=== PATIENT | male | born 1960 | race Caucasian/White ===

== ENCOUNTER → 2016-12-18 | Outpatient (CLI) | payer BC ==
--- NOTE | 2016-12-18 09:58 | DIAGNOSTIC IMAGING REPORT ---
CHEST 2 VIEWS ROUTINE [id number] STUDY: 09/11/2014 FINDINGS: The cardiac and mediastinal contours are normal. There is no evidence of focal pulmonary consolidation. There is no evidence of failure. No pleural effusions are visualized.[ Small midlung zone nodular opacities remain similar to the prior study, and are felt to represent nipple shadows. IMPRESSION: No active disease in the chest. Electronically signed by: Adrian Malin M.D. 12/18/2016 9:57 AM Dictated Date/Time: 12/18/2016 9:56 AM
[2016-12-18 14:39] LABS: URINE APPEARANCE CLOUDY (CLEAR); URINE BILIRUBIN NEG (NEG); URINE COLOR YELLOW; URINE EPITHELIAL CELL AUTO 0-5 /lpf (0-5); URINE NITRITE NEG (NEG); URINE SPECIFIC GRAVITY 1.019 (1.000-1.030); UROBILINOGEN NEG (NEG)
[2016-12-18 14:40] LABS: MANUAL MICROSCOPIC REQUIRED? NO; REVIEW REQ? NO
== END | disposition home or self-care (01) ==
LOC: C.RADBC 09:29
PROVIDERS: ATTEND Internal Medicine
DX: Z00.00 Encounter for general adult medical examination without abnormal findings (principal)

== ENCOUNTER 2020-12-23 13:42 | Inpatient (IN) ==
[2020-12-23] MEDS ORDERED: ASPIRIN CHEW 324 MG PO STA (15:22)
[2020-12-23 15:31] LABS: Basophils # (auto) 0.01 K/uL (0-0.2); Basophils % (auto) 0.3 %; Eosinophils # (auto) 0.16 K/uL (0-0.5); Hematocrit (blood only) 42.9 % (42-52); Immature Granulocytes # (auto) 0.01 K/uL (0.00-0.02); Immature Granulocytes % (auto) 0.3 %; Lymphocytes # (auto) 0.98 K/uL (1.2-3.4); Lymphocytes % (auto) 24.7 %; Mean Corpuscular Hemoglobin 29.2 pg (25-34); Mean Corpuscular Volume 83.5 fL (80-100); Mean Platelet Volume 9.3 fL (7.4-10.4); Monocytes # (auto) 0.39 K/uL (0.11-0.59); Monocytes % (auto) 9.8 %; Neutrophils # (auto) 2.42 K/uL (1.4-6.5); Neutrophils % (auto) 60.9 %; Platelet Count 201 K/uL (130-400); RDW Coefficient of Variation 12.8 % (11.5-14.5); RDW Standard Deviation 38.7 fL (36.4-46.3); Red Blood Count 5.14 M/uL (4.7-6.1); White Blood Count 3.97 K/uL (4.8-10.8)
[2020-12-23 15:39] LABS: Albumin Level 3.5 gm/dl (3.4-5.0); BUN Creatinine Ratio 13.1 (10-20); Calcium 9.1 mg/dl (8.5-10.1); Creatinine Clr Calc Pharmacy 73.4 ml/min; Est GFR (Non-African American) 75.1 ml/min; Potassium 3.8 mmol/L (3.5-5.1)
[2020-12-23 15:43] LABS: Partial Thromboplastin Time 25.9 Seconds (21.0-31.0); Prothrombin Time 10.5 Seconds (9.0-12.0)
[2020-12-23 16:02] LABS: Albumin Globulin Ratio 1.1 (0.9-2); Bilirubin,Total 0.6 mg/dl (0.2-1); Globulin 3.2 gm/dl (2.5-4.0); Total Protein 6.7 gm/dl (6.4-8.2); Troponin I 0.968 ng/ml (0-0.045)
--- NOTE | 2020-12-23 16:04 | XRay Report ---
SINGLE VIEW CHEST CLINICAL HISTORY: Atypical chest pain. FINDINGS: An AP, portable, upright chest radiograph is compared to study dated 12/18/2016. The heart i s enlarged noting atherosclerotic calcification of the thoracic aorta. The pulmonary vasculature is n oncongested. There is mild bibasilar atelectasis. The lungs and pleural spaces are otherwise clear. N o pneumothorax is seen. The bony thorax is grossly intact. IMPRESSION: Cardiomegaly with no acute cardiopulmonary abnormality. ACT 112: Negative or not required by law. Electronically signed by: Ralph Mendoza M.D. 12/23/2020 4:03 PM
--- NOTE | 2020-12-23 16:29 | Emergency Department Note ---
Impression & Plan NSTEMI (non-ST elevated myocardial infarction), HTN (hypertension), HLD (hyperlipidemia) ED Provider Note NAME: CELESTINO HICKS AGE: 60 SEX: M ARRIVES VIA: Walk-In INFORMANT: Patient, ED PROVIDER(S): Tomas Fuentes MD CHIEF COMPLAINT: Exertional chest pain. PLAN: Disposition Admit: MEDICAL DECISION MAKING: The patient is a pleasant 60-year-old gentleman with a past medical history of hypertension, hyperlipidemia as well as a family history of heart disease who presents emergency department with worsening substernal chest pain associated with exertion in the setting of having consistent exertional chest pain over the past month. The patient reports that he had pain actually began last night when he was trying to go to sleep and woke him from sleep but he reports taking Tums as well as Excedrin and felt some relief but then the pain returned eventually went away where he could sleep but was somewhat present in the morning. He reports he was playing pickleball today which required exertion and the pain instantly would be provoked and then would resolve upon rest. He went to urgent care and was referred to emergency department. On arrival the patient reports minimal presence of the pain. Otherwise he denies any shortness of breath, nausea/vomiting, lightheadedness or radiation associate with the pain. Prior today he denies any recent fevers, chills, cough or congestion. He denies any known COVID-19 exposures. He reports he did receive his second COVID-19 immunization in September. On arrival the patient is in no acute distress, afebrile stable vital signs.. He appears clinically dry. His abdomen is benign. Exam is otherwise unremarkable. EKG demonstrates nonspecific T wave abnormality but no overt ST elevation or depression. Chest x-ray negative for acute cardiopulmonary process. WBC 3.9, nonspecific. H/H and platelets within normal limits. Chemistry without metabolic acidosis. Electrolytes and LFTs are unremarkable. Troponin 0.96 which in the setting of the patient's exertional chest pain c/w NSTEMI. The patient is agreeable for admission. He was given aspirin in the emergency department and denies any significant pain at this time. He reports complete resolution of sensation in chest after nitroglycerin x 1. Resident, Dr. Mccracken, discussed case with Dr. Ashraf, [facility] hospitalist, who will evaluate the patient for admission. Lovenox initiated for NSTEMI. I also reviewed case with Dr. Choi, cardiology on-call, who agrees with plan, management of pain, and close monitoring for recurrence of symptoms/need for emergent intervention. This patient was managed with the assistance of resident, Dr. Mccracken. I discussed the case with the resident, examined the patient, and confirm the findings and plan as documented in this note. Triage Nursing notes reviewed and agree them. Prior medical records reviewed Vital Signs: reviewed and remarkable for no significant abnormalities Differential diagnosis: Cardiac ischemia, aortic dissection, pulmonary embolism, pneumothorax, pneumonia, pericarditis, myocarditis, esophageal rupture, GERD, cholecystitis, pancreatitis, musculoskeletal, as well as other pathologies. ER treatment provided: With basketball when he was playing Diagnostics interpreted by me: ECG: Sinus bradycardia, 52 bpm, no ectopy, TWA, no overt ST elevation or depression. Cardiac Monitoring: An order for continuous cardiac monitoring was placed and demonstrated sinus bradycardia, 52 bpm, no ectopy. Laboratory studies: See below Imaging studies: See below Consultation(s): Dr. Ashraf, [facility] hospitalist, who will evaluate the patient for admission. Dr. Choi, [place] cardiology on-call. HPI: The patient is a pleasant 60-year-old gentleman with a past medical history of hypertension, hyperlipidemia as well as a family history of heart disease who presents emergency department with worsening substernal chest pain associated with exertion in the setting of having consistent exertional chest pain over the past month. The patient reports that he had pain actually began last night when he was trying to go to sleep and woke him from sleep but he reports taking Tums as well as Excedrin and felt some relief but then the pain returned eventually went away where he could sleep but was somewhat present in the morning. He reports he was playing pickleball today which required exertion and the pain instantly would be provoked and then would resolve upon rest. He went to urgent care and was referred to emergency department. On arrival the patient reports minimal presence of the pain. Otherwise he denies any shortness of breath, nausea/vomiting, lightheadedness or radiation associate with the pain. Prior today he denies any recent fevers, chills, cough or congestion. He denies any known COVID-19 exposures. He reports he did receive his second COVID-19 immunization in September. ROS: See above HPI for pertinent positives & negatives. A total of 10 systems re viewed and were otherwise negative. PAST MEDICAL HISTORY:See Below PAST SURGICAL HISTORY:See Below FAMILY HISTORY:See Below SOCIAL HISTORY:See Below HOME MEDICATIONS:See Below ALLERGIES:See Below VITALS:See Below PHYSICAL EXAMINATION: GENERAL: Awake, alert, uncomfortable-appearing, in no distress HENT: Normocephalic, atraumatic. Oropharynx with dry mucous membranes and otherwise unremarkable. EYES: Normal conjunctiva. Sclera non-icteric. NECK: Supple. No nuchal rigidity. FROM. No JVD. RESPIRATORY: Clear to auscultation. CARDIAC: Regular rate, normal rhythm. Extremities warm and well perfused. Pulses equal. ABDOMEN: Soft, non-distended. No tenderness to palpation. No rebound or guarding. No masses. RECTAL: Deferred. MUSCULOSKELETAL: Chest examination reveals no tenderness. The back is symmetrical on inspection without obvious abnormality. There is no CVA tenderness to palpation. No joint edema. LOWER EXTREMITIES: Calves are equal size bilaterally and non-tender. No edema. No discoloration. NEURO: Normal sensorium. No sensory or motor deficits noted. SKIN: No rash or jaundice noted. ED COURSE: Critical Care: I have personally spent greater than 45 minutes of critical care time in the direct management of this patient. This includes bedside care, interpretation of diagnostic studies, and testing, discussion with consultants, patient, and f amily members, and other required patient management activities. This 45 minutes is in excess of all separately billable procedures. Tomas Fuentes MD Past Med/Surg History Medical History (Updated 12/24/20 @ 00:49 by Tomas Fuentes MD) Biceps rupture, distal Dyslipidemia (high LDL; low HDL) HTN (hypertension) Metabolic syndrome Surgical History H/O lymph node excision S/P UPPP (uvulopalatopharyngoplasty) Family History Father Acute myocardial infarction Mother Breast cancer Social History Smoking Status: Never smoker Second Hand Exposure: No; Hx Alcohol Use: No Hx Substance Use: No Preferred Language: Setswana Communication Ability: Effective Visual Impairment: No Limitations Hearing Ability: Normal Lpta Required: No Beliefs That Will Affect Care: None marital status: Current Living Situation: Spouse current occupational status: retired How many Children do You have: 2 Feels Safe at Home: Yes Childhood Exposure to Second-Hand Smoke: Yes caffeine: Yes Dental Care, Regularly: Yes Physical Activity Frequency: 5-6 Times per Week Seatbelt Use: always Sunscreen Use: Yes Allergies Allergies Allergy/AdvReac Type Severity Reaction Status Date / Time codeine Allergy Unknown HAS Verified 12/23/20 16:42 RECEIVED MORPHINE ON ADMIT W/O RXN niacin Allergy Verified 12/23/20 16:42 [From Niaspan Extended-Release] Home Meds Home Medications Medication Instructions Recorded Confirmed cetirizine 10 mg tablet 10 mg PO QAM tab 02/06/19 12/23/20 lactobacillus combination no.9 4 4,000 mmu cells PO QAM 10/13/20 12/23/20 billion cell capsule (Adult 50 Plus Probiotic) omega 7-jxw-ewp-fish oil 284 2.5 g PO QAM g 10/13/20 12/23/20 mg-850 mg/2.5 gram oral emulsion packet (Coromega) vknlera-hongqoxziylxk-ehiupwqt 250 1 tab PO Q6H PRN 12/23/20 12/23/20 mg-250 mg-65 mg tablet (Excedrin Extra Strength) atorvastatin 10 mg tablet 10 mg PO QAM 12/23/20 12/23/20 olmesartan 40 1 tab PO QAM 12/23/20 12/23/20 mg-hydrochlorothiazide 12.5 mg tablet tadalafil 20 mg tablet (Cialis) 20 mg PO DIRECTED PRN 12/23/20 12/23/20 Results & Data (ED) Vital Signs Vital Signs - 24 hr 12/23/20 13:46 12/23/20 14:58 12/23/20 15:00 Temperature 36.7 C Temperature Source Temporal Artery Scan Pulse Rate 53 L 39 L 48 L Pulse Rate from SpO2 Sensor Respiratory Rate 18 11 L 19 Respiratory Effort / Characteristics Non-Labored Respiratory Depth Normal Blood Pressure 132/79 Blood Pressure Mean 96 Pulse Oximetry 97 Oxygen Delivery Method Room Air Sepsis Recent Fever Within 48 Hours No Sepsis New/Unexplained Change in Mental Status No Sepsis Action Taken by Nursing No Action Required 12/23/20 15:30 12/23/20 16:00 12/23/20 16:10 Temperature Temperature Source Pulse Rate 47 L 43 L Pulse Rate from SpO2 Sensor 47 L 43 L Respiratory Rate 17 10 L Respiratory Effort / Characteristics Respiratory Depth Blood Pressure 134/78 126/62 Blood Pressure Mean 96 83 Pulse Oximetry 96 97 99 Oxygen Delivery Method Room Air Sepsis Recent Fever Within 48 Hours Sepsis New/Unexplained Change in Mental Status Sepsis Action Taken by Nursing 12/23/20 16:11 12/23/20 16:31 12/23/20 16:58 Temperature Temperature Source Pulse Rate 48 L 42 L Pulse Rate from SpO2 Sensor 48 L Respiratory Rate 16 11 L Respiratory Effort / Characteristics Respiratory Depth Blood Pressure 133/83 121/69 Blood Pressure Mean 99 86 Pulse Oximetry 99 98 Oxygen Delivery Method Room Air Sepsis Recent Fever Within 48 Hours Sepsis New/Unexplained Change in Mental Status Sepsis Action Taken by Nursing Laboratory Data Attestation: I reviewed the patient's lab results. Result diagrams: 12/23/20 15:02 12/23/20 15:02 Lab Results 12/23/20 12/23/20 12/23/20 Range/Units 15:02 15:02 15:02 WBC 3.97 L (4.8-10.8) K/uL RBC 5.14 (4.7-6.1) M/uL Hgb 15.0 (14.0-18.0) g/dL Hct 42.9 (42-52) % MCV 83.5 (80-100) fL MCH 29.2 (25-34) pg MCHC 35.0 (32-36) g/dL RDW Std Deviation 38.7 (36.4-46.3) fL RDW Coeff of René 12.8 (11.5-14.5) % Plt Count 201 (130-400) K/uL MPV 9.3 (7.4-10.4) fL Immature Gran % (Auto) 0.3 % Neut % (Auto) 60.9 % Lymph % (Auto) 24.7 % Garrett % (Auto) 9.8 % Eos % (Auto) 4.0 % Baso % (Auto) 0.3 % Neut # (Auto) 2.42 (1.4-6.5) K/uL Lymph # (Auto) 0.98 L (1.2-3.4) K/uL Garrett # (Auto) 0.39 (0.11-0.59) K/uL Eos # (Auto) 0.16 (0-0.5) K/uL Baso # (Auto) 0.01 (0-0.2) K/uL Immature Gran # (Auto) 0.01 (0.00-0.02) K/uL PT 10.5 (9.0-12.0) Seconds INR 1.0 (0.9-1.1) APTT 25.9 (21.0-31.0) Seconds PTT Ratio 1.0 Sodium 139 (136-145) mmol/L Potassium 3.8 (3.5-5.1) mmol/L Chloride 106 (98-107) mmol/L Carbon Dioxide 30 (21-32) mmol/L Anion Gap 3.0 (3-11) BUN 14 (7-18) mg/dl Creatinine 1.07 (0.6-1.4) mg/dl Est Cr Clr Drug Dosing 73.4 ml/min Est GFR ( Amer) 87.0 ml/min Est GFR (Non-Af Amer) 75.1 ml/min BUN/Creatinine Ratio 13.1 (10-20) Glucose 111 H (70-99) mg/dl Calcium 9.1 (8.5-10.1) mg/dl Total Bilirubin 0.6 (0.2-1) mg/dl AST 36 (15-37) U/L ALT 36 (12-78) U/L Alkaline Phosphatase 76 (45-117) U/L Troponin I 0.968 H* (0-0.045) ng/ml Total Protein 6.7 (6.4-8.2) gm/dl Albumin 3.5 (3.4-5.0) gm/dl Globulin 3.2 (2.5-4.0) gm/dl Albumin/Globulin Ratio 1.1 (0.9-2) Lipase 186 (73-393) U/L COVID-19 Eval Order SARS-CoV-2 (PCR) (Negative) 12/23/20 12/23/20 Range/Units 16:30 16:30 WBC (4.8-10.8) K/uL RBC (4.7-6.1) M/uL Hgb (14.0-18.0) g/dL Hct (42-52) % MCV (80-100) fL MCH (25-34) pg MCHC (32-36) g/dL RDW Std Deviation (36.4-46.3) fL RDW Coeff of René (11.5-14.5) % Plt Count (130-400) K/uL MPV (7.4-10.4) fL Immature Gran % (Auto) % Neut % (Auto) % Lymph % (Auto) % Garrett % (Auto) % Eos % (Auto) % Baso % (Auto) % Neut # (Auto) (1.4-6.5) K/uL Lymph # (Auto) (1.2-3.4) K/uL Garrett # (Auto) (0.11-0.59) K/uL Eos # (Auto) (0-0.5) K/uL Baso # (Auto) (0-0.2) K/uL Immature Gran # (Auto) (0.00-0.02) K/uL PT (9.0-12.0) Seconds INR (0.9-1.1) APTT (21.0-31.0) Seconds PTT Ratio Sodium (136-145) mmol/L Potassium (3.5-5.1) mmol/L Chloride (98-107) mmol/L Carbon Dioxide (21-32) mmol/L Anion Gap (3-11) BUN (7-18) mg/dl Creatinine (0.6-1.4) mg/dl Est Cr Clr Drug Dosing ml/min Est GFR ( Amer) ml/min Est GFR (Non-Af Amer) ml/min BUN/Creatinine Ratio (10-20) Glucose (70-99) mg/dl Calcium (8.5-10.1) mg/dl Total Bilirubin (0.2-1) mg/dl AST (15-37) U/L ALT (12-78) U/L Alkaline Phosphatase (45-117) U/L Troponin I (0-0.045) ng/ml Total Protein (6.4-8.2) gm/dl Albumin (3.4-5.0) gm/dl Globulin (2.5-4.0) gm/dl Albumin/Globulin Ratio (0.9-2) Lipase (73-393) U/L COVID-19 Eval Order Covid19 at [facility] SARS-CoV-2 (PCR) NEGATIVE (Negative) Administered Medications Acetaminophen (Acetaminophen 325 Mg Tab) 650 mg PO Q4H PRN PRN Reason: Pain or Fever Stop: 01/22/21 20:14 Last Admin: 12/23/20 20:33 Dose: 650 mg Documented by: [id number] Atorvastatin Calcium (Atorvastatin 40 Mg Tab) 40 mg PO QAM SRI Stop: 01/22/21 20:29 Last Admin: 12/23/20 21:44 Dose: 40 mg Documented by: [id number] Potassium Chloride/Dextrose/Sod Cl (D5nss + 20meq Kcl) 20 meq in 1,000 mls @ 80 mls/hr IV .[id number] SRI Stop: 12/24/20 21:14 Last Admin: 12/23/20 21:43 Dose: 80 mls/hr Documented by: [id number] Discontinued Medications Aspirin (Aspirin Chew 324 Mg) 324 mg PO ONE STA Stop: 12/23/20 15:23 Last Admin: 12/23/20 16:55 Dose: 324 mg Documented by: [id number] Enoxaparin Sodium (Enoxaparin 1 Mg/Kg) 1 mg SQ NOW STA Stop: 12/23/20 16:38 Last Admin: 12/23/20 17:27 Dose: Not Given Documented by: [id number] Enoxaparin Sodium (Enoxaparin 80 Mg/0.8 Ml Syr) 80 mg SQ NOW ONE Stop: 12/23/20 17:01 Last Admin: 12/23/20 16:56 Dose: 80 mg Documented by: [id number] Nitroglycerin (Nitroglycerin Sl 0.4 Mg/Tab Tab) 0.4 mg SL NOW STA Stop: 12/23/20 16:50 Last Admin: 12/23/20 17:23 Dose: 0.4 mg Documented by: [id number] Imaging Data Radiologist's Impression: Chest X-Ray 12/23/20 15:23 SINGLE VIEW CHEST CLINICAL HISTORY: Atypical chest pain. FINDINGS: An AP, portable, upright chest radiograph is compared to study dated 12/18/2016. The heart is enlarged noting atherosclerotic calcification of the thoracic aorta. The pulmonary vasculature is noncongested. There is mild bibasilar atelectasis. The lungs and pleural spaces are otherwise clear. No pneumothorax is seen. The bony thorax is grossly intact. IMPRESSION: Cardiomegaly with no acute cardiopulmonary abnormality. ACT 112: Negative or not required by law. Electronically signed by: Ralph Mendoza M.D. 12/23/2020 4:03 PM Discharge Plan Visit Data Chief Complaint: Cardiac Assessment Stated Complaint: CHEST PAIN, REFERRED BY URGENT CARE ED Provider: Tomas Fuentes ED Midlevel Provider: Lashawn Mccracken Discharge Problem: NSTEMI (non-ST elevated myocardial infarction), HTN (hypertension), HLD (hyperlipidemia) Patient Disposition: Admitted As Inpatient Discharge Instructions Interventions: ED Discharge Assessment Last Done: 12/23/20 18:32 Discharge Problem: HTN (hypertension) Qualifiers: Hypertension type: unspecified Qualified Code(s): I10 - Essential (primary) hypertension HLD (hyperlipidemia) Qualifiers: Hyperlipidemia type: unspecified Qualified Code(s): E78.5 - Hyperlipidemia, unspecified
[2020-12-23] MEDS ORDERED: ENOXAPARIN 1 MG/KG SQ STA (16:37)
[2020-12-23] MEDS ORDERED: NITROGLYCERIN SL 0.4 MG/TAB TAB SL STA (16:49)
[2020-12-23] MEDS ORDERED: ENOXAPARIN 80 MG/0.8 ML SYR SQ ONE (17:00)
--- NOTE | 2020-12-23 17:31 | History & Physical Report ---
Date of Service December 23, 2020 Assessment & Plan (1) NSTEMI (non-ST elevated myocardial infarction): Plan: 60 y/o M Hx HTN, HLD. Presents with intermittent CP. This initially occurred while exercising the prior day, and then recurred overnight waking him from sleep. The pt denies SOB, N/V, diaphoresis. He had some relief with an Excedrin at home. An initial EKG shows a NSR. Labs are notable for a trop of 0.98. 1) NSTEMI - full dose Lovenox, ASA, increase statin dose - assigned to telemetry. Cardiology consult pending. The pt is bradycardic at baseline and would not tolerate a beta tres. NTG/morphine PRN 2) HTN - Hold Olmesartan/HCTZ for AM assessment 3) HLD - cont Statin 4) EDSON- the pt states he tested negative for EDSON 10 years ago. His insists he has EDSON as he snores and stops breathing. Considering this admission, repeat testing would be indicated. We will leave him on 02 overnight. Full code - full-dose Lovenox Total time for this admit including review of labs, meds, imaging, records - discussion with pt and ER attending - 37 min (2) HTN (hypertension): (3) HLD (hyperlipidemia): (4) EDSON (obstructive sleep apnea): History of Present Illness Chief Complaint: CP Primary Care Provider: Joesph Hussein MD 60 y/o M Hx HTN, HLD. Presents with intermittent CP. This initially occurred while exercising the prior day, and then recurred overnight waking him from sleep. The pt denies SOB, N/V, diaphoresis. He had some relief with an Excedrin at home. An initial EKG shows a NSR. Labs are notable for a trop of 0.98. PMH: 1) HTN 2) HLD 3) Prior dx of EDSON Surgical: Upper airway surgery for EDSON Social: Drinks alcohol in moderation. Does not smoke. Exercises regularly. Family: Mother - Dementia Father alive - CVA, CAD/MS x 2 Allergies Allergy/AdvReac Type Severity Reaction Status Date / Time codeine Allergy Unknown HAS Verified 12/23/20 16:42 RECEIVED MORPHINE ON ADMIT W/O RXN niacin Allergy Verified 12/23/20 16:42 [From Niaspan Extended-Release] Home Medications Medication Instructions Recorded Confirmed Type cetirizine 10 mg tablet 10 mg PO QAM tab 02/06/19 12/23/20 History lactobacillus combination no.9 4 4,000 mmu cells PO QAM 10/13/20 12/23/20 History billion cell capsule (Adult 50 Plus Probiotic) omega 0-iwc-elf-fish oil 284 2.5 g PO QAM g 10/13/20 12/23/20 History mg-850 mg/2.5 gram oral emulsion packet (Coromega) uzvwlwt-sigpjkivmxujl-vfvkugkd 250 1 tab PO Q6H PRN 12/23/20 12/23/20 History mg-250 mg-65 mg tablet (Excedrin Extra Strength) atorvastatin 10 mg tablet 10 mg PO QAM 12/23/20 12/23/20 History olmesartan 40 1 tab PO QAM 12/23/20 12/23/20 History mg-hydrochlorothiazide 12.5 mg tablet tadalafil 20 mg tablet (Cialis) 20 mg PO DIRECTED PRN 12/23/20 12/23/20 History Past Med/Surg History Medical History (Updated 12/23/20 @ 17:21 by Suresh Ashraf MD) Biceps rupture, distal Dyslipidemia (high LDL; low HDL) HTN (hypertension) Metabolic syndrome Surgical History H/O lymph node excision S/P UPPP (uvulopalatopharyngoplasty) Family History Father Acute myocardial infarction Mother Breast cancer Social History Smoking Status: Never smoker Second Hand Exposure: No; Hx Alcohol Use: Yes Alcohol type: beer, wine and hard liquor Alcohol Intake Frequency: 2-3 x/Week Hx Substance Use: No Preferred Language: Tajik Visual Impairment: No Limitations Hearing Ability: Normal marital status: Current Living Situation: Spouse current occupational status: retired How many Children do You have: 2 Feels Safe at Home: Yes Childhood Exposure to Second-Hand Smoke: Yes caffeine: Yes Dental Care, Regularly: Yes Physical Activity Frequency: 5-6 Times per Week Seatbelt Use: always Sunscreen Use: Yes Review of Systems Review of Systems: Gen: Denies fevers, night sweats, rigors, fatigue, malaise, weight loss/gain ENT: Denies congestion, throat pain, hearing loss Eyes: Denies acute visual changes CV: CP as above Pulmonary: Denies SOB, cough, wheezing GI: Denies N/V, diarrhea, constipation Neuro: Denies acute or unilateral weakness, acute gait impairment, headache or acute visual changes Musculoskeletal: Denies joint pain, inflammation Endocrine: Denies polydipsia, polyuria Skin: Denies acute rashes or ulcers Physical Exam Physical Exam: General: AAO x 3, no distress ENT: No erythema or exudates, no thrush Eyes: JOSUE, EOMI Head and neck: Normocephalic, atraumatic, No JVD, neck is supple. Chest/heart: Nontender, S1,2, RRR, no murmurs, no gallops Lungs: CTAB, no wheezing or crackles Abdomen: Nontender, nondistended, BS+ Neuro: AAO x 3, speech is clear, no unilateral weakness or loss of sensation, coordination intact Musculoskeletal: No joint inflammation, muscle tenderness, FROM Skin: No acute rashes or ulcers Extremities: No clubbing, cyanosis, edema Results & Data Results & Data ([facility]) Vital Signs (Past 12 Hours) Vital Signs Temp Pulse Resp BP Pulse Ox 12/23/20 16:31 48 L 16 133/83 98 12/23/20 16:11 99 12/23/20 16:10 99 12/23/20 16:00 43 L 10 L 126/62 97 12/23/20 15:30 47 L 17 134/78 96 12/23/20 15:00 48 L 19 12/23/20 14:58 39 L 11 L 12/23/20 13:46 98.1 F 53 L 18 132/79 97 Code Status & VTE Plan Code Status Full VTE Prophylaxis Plan VTE Prophylaxis will be ordered: Yes PG Care Time/CCT Total # of Minutes Spent Total Time Spent with Patient: Total time spent is greater than 50% in coordination of care (as documented) at patient's floor/unit and/or counseling patient: Coding Level of Care Code 01344 Initial Inpt Care Lvl 3 Diagnoses NSTEMI (non-ST elevated myocardial infarction) I21.4 HTN (hypertension) I10 Hypertension type: essential hypertension HLD (hyperlipidemia) E78.5 EDSON (obstructive sleep apnea) G47.33 (1) HTN (hypertension) Hypertension type: essential hypertension Qualified Code(s): I10 - Essential (primary) hypertension
[2020-12-23] MEDS ORDERED: MoRPHine SULFATE 2 MG/ML CARP IV PRN (20:15)
[2020-12-23] MEDS ORDERED: MAGNESIUM HYDROXIDE SUSP 30 ML UDC PO PRN (20:15)
[2020-12-23] MEDS ORDERED: NITROGLYCERIN SL 0.4 MG/TAB TAB SL PRN (20:15)
[2020-12-23] MEDS ORDERED: ALUMINUM/MAGNESIUM SUSP 30 ML UDC PO PRN (20:15)
[2020-12-23] MEDS ORDERED: ZOLPIDEM TARTRATE 5 MG TAB PO PRN (20:15)
[2020-12-23] MEDS: ACETAMINOPHEN 325 MG TAB PO PRN (20:33)
[2020-12-23] MEDS: D5NSS + 20MEQ KCL 20 MEQ/1,000 ML BAG IV SCH (21:43)
[2020-12-23] MEDS: ATORVASTATIN 40 MG TAB PO SCH (21:44)
[2020-12-24] MEDS ORDERED: ENOXAPARIN 80 MG/0.8 ML SYR SQ SCH (05:00)
[2020-12-24] MEDS: ATORVASTATIN 40 MG TAB PO SCH (08:04)
[2020-12-24] MEDS: ASPIRIN 81 MG ECTAB PO SCH (08:05)
--- NOTE | 2020-12-24 08:47 | Electrocardiogram Report ---
Test Reason : Blood Pressure : / mmHG Vent. Rate : 052 BPM Atrial Rate : 052 BPM P-R Int : 182 ms QRS Dur : 096 ms QT Int : 470 ms P-R-T Axes : 064 045 068 degrees QTc Int : 437 ms Sinus bradycardia Left atrial enlargement Nonspecific T wave abnormality Anterior leads Abnormal ECG When compared with ECG of 07-JUN-2005 06:18, T wave inversion no longer evident in Anterolateral leads Confirmed by Chava Choi ([id number]) on 12/24/2020 8:46:36 AM Referred By: Junito Longoria Confirmed By:Chava Choi
--- NOTE | 2020-12-24 10:10 | Cardiology Consultation ---
Date of Consultation December 24, 2020 Assessment & Plan (1) NSTEMI (non-ST elevated myocardial infarction): Presentation consistent with high risk NSTEMI and recommend proceeding with cardiac catheterization and likely primary PCI. No apparent contraindications to procedure. Discussed risks, benefits, alternatives of procedure with patient and they are willing to proceed. Received Lovenox this morning. Continue aspirin, atorvastatin. Echo pending. Further recommendations pending findings of coronary angiography. History of Present Illness Attending Physician: Kleber Berrios DO History of Present Illness 60-year-old man here with acute chest pain, elevated troponin consistent with NSTEMI. No prior cardiac history. Cardiac risk factors include hypertension, dyslipidemia and family history with premature CAD involving his father in the 50s. Other medical issues include asthma, EDSON, back pain. Reports occasional exertional chest pain over the last month, most notably while walking up hill golfing or playing pickleball. Thought symptoms were indigestion. 2 nights ago had chest pain at rest that waking him from sleep. Symptoms resolved in AM but again had chest pain with exertion and eventually referred to ED by his PCP. On arrival troponin elevated and has trended up to 3.5. ECG with no dynamic ST changes. After nitroglycerin in the ED has been chest pain-free, electrically stable other than bradycardia to 40s. Family history: Father with [place] initially in the 50s, multiple stents and CVA in 80s. Social history: Non-smoker. Social alcohol. Retired. Previously worked for college by [employer], later [employer] work. Allergies Allergy/AdvReac Type Severity Reaction Status Date / Time codeine Allergy Unknown HAS Verified 12/23/20 16:42 RECEIVED MORPHINE ON ADMIT W/O RXN niacin Allergy Verified 12/23/20 16:42 [From [facility] Extended-Release] Home Medications Medication Instructions Recorded Confirmed Type cetirizine 10 mg tablet 10 mg PO QAM tab 02/06/19 12/23/20 History lactobacillus combination no.9 4 4,000 mmu cells PO QAM 10/13/20 12/23/20 History billion cell capsule (Adult 50 Plus Probiotic) omega 1-dlc-yop-fish oil 284 2.5 g PO QAM g 10/13/20 12/23/20 History mg-850 mg/2.5 gram oral emulsion packet (Coromega) wjfqktp-gosixzqmtfiue-dflscfbq 250 1 tab PO Q6H PRN 12/23/20 12/23/20 History mg-250 mg-65 mg tablet (Excedrin Extra Strength) atorvastatin 10 mg tablet 10 mg PO QAM 12/23/20 12/23/20 History olmesartan 40 1 tab PO QAM 12/23/20 12/23/20 History mg-hydrochlorothiazide 12.5 mg tablet tadalafil 20 mg tablet (Cialis) 20 mg PO DIRECTED PRN 12/23/20 12/23/20 History Patient History Medical History (Updated 12/24/20 @ 00:49 by Tomas Fuentes MD) Biceps rupture, distal Dyslipidemia (high LDL; low HDL) HTN (hypertension) Metabolic syndrome Surgical History H/O lymph node excision S/P UPPP (uvulopalatopharyngoplasty) Family History Father Acute myocardial infarction Mother Breast cancer Social History Smoking Status: Never smoker Second Hand Exposure: No; Hx Alcohol Use: No Hx Substance Use: No Preferred Language: Czech Communication Ability: Effective Visual Impairment: No Limitations Hearing Ability: Normal 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 Beliefs That Will Affect Care: None marital status: Current Living Situation: Spouse current occupational status: retired How many Children do You have: 2 Feels Safe at Home: Yes Childhood Exposure to Second-Hand Smoke: Yes caffeine: Yes Dental Care, Regularly: Yes Physical Activity Frequency: 5-6 Times per Week Seatbelt Use: always Sunscreen Use: Yes Assistive Devices: None Review of Systems Review of Systems: All systems reviewed & are unremarkable except as noted in HPI & below Physical Exam Constitutional: WD/WN, vitals as above Eyes: PERRL, conjunctivae normal, anicteric sclerae Respiratory: normal respiratory effort, lungs clear to auscultation Cardiovascular: RRR, no murmur, no edema Vessels: radial pulses present Gastrointestinal (Abdomen): normal bowel sounds, soft, nontender, no hepatosplenomegaly Skin: no rashes, warm and dry Psychiatric: A+Ox3, euthymic affect Results & Data ([facility]) Vital Signs (Past 12 Hours) Vital Signs Temp Pulse Pulse Resp BP Pulse Ox 12/24/20 07:37 97.9 F 41 L 17 136/80 97 12/24/20 07:16 48 L 12/24/20 03:07 98.2 F 54 L 17 132/73 97 12/23/20 23:17 98.2 F 39 L 16 139/78 97 PG Care Time/CCT Total # of Minutes Spent Total Time Spent with Patient: Total time spent is greater than 50% in coordination of care (as documented) at patient's floor/unit and/or counseling patient: Coding Level of Care Code 61564 Inpt Consult Level 4 Diagnoses NSTEMI (non-ST elevated myocardial infarction) I21.4
[2020-12-24] MEDS: D5NSS + 20MEQ KCL 20 MEQ/1,000 ML BAG IV SCH (10:11)
[2020-12-24] MEDS ORDERED: MIDAZOLAM HCL 1 MG/ML 2ML VIAL ONE ×2 (12:26→13:16)
[2020-12-24] MEDS ORDERED: HEPARIN (PORCINE) 1000 UNIT/ML 10 ML (CATH LAB USE ONLY) ONE ×2 (12:27→13:43)
[2020-12-24] MEDS ORDERED: fentaNYL citrate 100 MCG/2 ML VIAL ONE (12:27)
[2020-12-24] MEDS ORDERED: NITROGLYCERIN/D5W 100MCG/ML 20ML SYR ONE (12:27)
[2020-12-24] MEDS ORDERED: niCARdipine HCL INJ 2.5 MG/ML 10 ML AMP ONE (12:27)
--- NOTE | 2020-12-24 12:31 | XCELERA ---
[id number]
--- NOTE | 2020-12-24 12:39 | Pre Anesthesia Assessment ---
Date of Service December 24, 2020 Pre Sedation Assessment Vital Signs Temp Pulse Pulse Resp BP BP Pulse Ox 12/24/20 11:50 43 L 17 136/83 98 12/24/20 11:25 98.1 F 41 L 18 138/79 98 12/24/20 07:37 97.9 F 41 L 17 136/80 97 12/24/20 07:16 48 L 12/24/20 03:07 98.2 F 54 L 17 132/73 97 12/23/20 23:17 98.2 F 39 L 16 139/78 97 12/23/20 19:57 97.9 F 40 L 17 152/97 H 100 12/23/20 18:00 51 L 14 125/70 98 12/23/20 17:30 54 L 18 132/74 94 12/23/20 17:01 44 L 15 132/73 100 12/23/20 16:58 42 L 11 L 121/69 12/23/20 16:31 48 L 16 133/83 98 12/23/20 16:11 99 12/23/20 16:10 99 12/23/20 16:00 43 L 10 L 126/62 97 12/23/20 15:30 47 L 17 134/78 96 12/23/20 15:00 48 L 19 12/23/20 14:58 39 L 11 L 12/23/20 13:46 98.1 F 53 L 18 132/79 97 Cardiovascular RRR, no murmur, no edema Respiratory normal respiratory effort, lungs clear to auscultation Pre-Sedation Airway Assessment Smoking Status: Never smoker Hx Sleep Apnea: No Hx Difficult Intubation: No Short, Thick Neck: No Thyromental Distance: > or= 3.5 Finger Breadths Oral Cavity: + WNL Mallampati Class: III ASA: ASA2 NPO Status Date of Last Intake of Fluids: 12/23/20 Date of Last Intake of Solid Food: 12/23/20 Procedure Planning Contraindications for Sedation: none Current Medications Reviewed: Yes Notes The planned sedation has been discussed with the patient. Informed Consent was obtained. I have identified the patient, determined the appropriateness of sedation and have assessed the patient immediately prior to the procedure. All medicine(s) and interventions are by my order.
[2020-12-24] MEDS ORDERED: ATROPINE SULFATE 0.1 MG/ML 10ML SYR IV ONE (12:53)
[2020-12-24] MEDS ORDERED: TICAGRELOR 90 MG TAB PO ONE (14:03)
[2020-12-24] MEDS: ACETAMINOPHEN 325 MG TAB PO PRN ×2 (14:41→19:43)
--- NOTE | 2020-12-24 15:03 | Post Anesthesia Assessment ---
Date of Service December 24, 2020 Post Sedation Assessment Vital Signs Temp Pulse Pulse Resp BP BP Pulse Ox 12/24/20 15:00 40 L 18 145/93 H 99 12/24/20 14:43 38 L 18 155/72 H 99 12/24/20 14:25 40 L 16 148/72 H 94 12/24/20 14:13 41 L 16 139/79 94 12/24/20 11:50 43 L 17 136/83 98 12/24/20 11:25 98.1 F 41 L 18 138/79 98 12/24/20 07:37 97.9 F 41 L 17 136/80 97 12/24/20 07:16 48 L 12/24/20 03:07 98.2 F 54 L 17 132/73 97 12/23/20 23:17 98.2 F 39 L 16 139/78 97 12/23/20 19:57 97.9 F 40 L 17 152/97 H 100 12/23/20 18:00 51 L 14 125/70 98 12/23/20 17:30 54 L 18 132/74 94 12/23/20 17:01 44 L 15 132/73 100 12/23/20 16:58 42 L 11 L 121/69 12/23/20 16:31 48 L 16 133/83 98 12/23/20 16:11 99 12/23/20 16:10 99 12/23/20 16:00 43 L 10 L 126/62 97 12/23/20 15:30 47 L 17 134/78 96 Recovery Score Activity: Moves 4 extremities Respiration: Deep Breath/Cough Circulation: +/-20% PreAnes Value Consciousness: Fully Awake Oxygen Saturation: > 92% On Room Air Post Anesthesia Score: 10 Discharge Sedation Level of Care: Fast Track Phase II Post Sedation Plan On clinical assessment, the patient appears to have tolerated the sedation without complications. Patient is recovering as anticipated. Patient will continue to be monitored by nursing and may be discharged when sedation discharge criteria are met per below protocol. Upon Completions of procedure up to 15 minutes continue every 5 minute vital signs and the P.A.R. score; then discharge to a Phase I or Fast Track to Phase II per the following guidelines: * Discharge Patient to appropriate Phase II area if PAR is 8 or greater or return to pre- procedure baseline. The post - procedure orders will be as directed. * If PAR score is less than 8 or not return to pre-procedure baseline then patient will follow Phase I monitoring till PAR is reached for Phase II. The Phase I may be done in procedure room or may call to secure a Phase I area. * If naloxone or flumazenil are used for reversal, hold in Phase I for continued monitoring from when last reversal dose was given for a minimum of 60 minutes or longer pending the nurse and/or physician discretion of patient condition before discharge to Phase II. Please call the Sedation Physician to re-evaluate and complete post-note for discharge to Phase II area. Do NOT discharge from procedure sedation or Phase 1 until post- sedation evaluation note is complete by procedure /sedation MD Sedation Discharge Instructions to be given to the patient at discharge to home.
[2020-12-24] MEDS ORDERED: SODIUM CHLORIDE 0.9% 1000ML 1,000 ML IV SCH (15:15)
--- NOTE | 2020-12-24 15:36 | Cardiac Catheterization ---
[facility] Data: Retread Operator Cardiac Status Clinical evaluation leading to the procedure CAD Presenation: Non STEMI Anginal Classification: CCS IV Heart Failure: No Cardiogenic Shock within 24 Hours: No Cardiac Arrest within 24 Hours: No Imaging Studies Past 6 Months: Yes Stress Studies Past 6 Months: No Diagnostic Physicians Name: Anuj Allan MD Status: Elective Closure Device Percutaneous Entry Location: Radial Closure Device: Radial Band Recommendations: PCI without planned CABG PCI Indication: PCI for high risk Non-CAS Lesion Segment Name: mid RCA Culprit Artery: Yes Stenosis Prior to Rx (%): 100 Chronic Total Occlusion: No IVUS: Yes FFR: No Pre-Procedure JAMES Flow: 0 Previously Treated Lesion: No Lesion Complexity: High/C Lesion Length (mm): 50 Thrombus Present: Yes Bifurcation Lesion: No Guidewire Across Lesion: Stenosis Post-Procedure (%): 0 Post-Procedure JAMES Flow: 3 Devices(s) Deployed: Yes Yes Intraprocedure Events Significant Disection: No Perforation: No Cardiac Cath Procedure Full Procedure Date December 24, 2020 Pre-Procedure Diagnosis Pre-Procedure Diagnosis: Non STEMI AUC Score AUC Score: 8 Post-Procedure Diagnosis Post-Procedure Diagnosis: Severe CAD, Successful PCI and Normal Intracardiac Pressures Procedure(s) Performed Procedure(s) Performed: Coronary Angiography, Left Heart Cath, Drug Eluting Stent and IVUS Hr Assistant Anuj Allan MD Yard Worker(s) Showers Estimated Blood Loss Estimated Blood Loss: 15 Medication(s) Medication(s): Fentanyl, Heparin, Lidocaine 1%, Nicardipine, Nitroglycerin and Versed Medication(s): Ticagrelor Summary of Findings Indication: High risk NSTEMI Access: 6 Fr right radial artery Catheters: [place], 4 guide Findings: LM -Short, no significant disease LAD -medium caliber, calcified, proximal luminal regularities, focal 40 to 50% mid stenosis just after takeoff of second diagonal. Distal vessel without significant disease and extends around apex. Medium D1 without disease. Circumflex - Medium caliber, mid segment luminal regularities. Medium OM 2 without disease. RCA -dominant, large caliber vessel, calcified diffuse moderate mid RCA disease prior to acute on chronic 100% latemid occlusion. Right PLB, distal RCA fills slowly retrograde via [id number] collaterals LVEDP -14 -- PCI -- Antithrombotic therapy: Heparin, ticagrelor Procedure: RCA cannulated with JR4 guide and telescope support catheter Long whisper wire passed across lesion into distal vessel Distal intraluminal position confirmed via injection through OTW balloon Mid to distal lesion predilated with 2.0 and 3.0 compliant balloons [place] IVUS catheter placed into distal vessel. Pullback revealed diffuse disease with areas of circumferential calcium and distal/mid vessel as well as distal thrombus. Proximal vessel with minimal disease. Dilated mid to distal RCA lesion stented with 3.5 x 38 mm [place] drug-eluting stent Stent post-dilated with 4.0 noncompliant balloon Second MARYJO (3.5 x 18 mm Sime[place]) placed to earlymid RCA overlapping with proximal aspect of initial stent Stents postdilated with 4.0 NC balloon IC vasodilators administered for spasm Post procedure JAMES 3 flow, stents well expanded with minimal residual stenosis and no apparent cardiac complications. Arterial Closure: TR band Summary: 1. Acute on chronic 100% latemid RCA occlusion. Faint nukb-zu-grldu collaterals. 2. Moderate nonculprit vessel disease 40 to 50% focal mid LAD at takeoff of second septal 3. Normal intracardiac filling pressure 4. Successful PCI of mid to distal RCA with 2 overlapping drug-eluting stents (3.5 x 18, 3.5 x 38 [place]; postdilated with 4.0 NC). Recommendations: To PCU for continued monitoring Loaded with ticagrelor 180 mg in Retread Operator Continue dual-antiplatelet therapy for at least 1 year Continue statin, and ASCVD risk factor modification Consult cardiac Rehab Hemodynamics Rest Ao:: 126/73/95 Final Ao: 120/68/100 LV: 126/14 Recommendations Recommendations: PCI without planned CABG Specimens Specimens: None Radiation Exposure (mGy) 2806 Contrast (mls) 150 Fluids (cc crystalloids) Fluids (cc crystalloids): 150 Drains Drains: none Anesthesia moderate Procedural Complication(s) None Disposition PCU I attest to the content of the Intraoperative Record and any orders documented therein. Any exceptions are noted below. Zigmo Card Cath Procedure Codes Cardiac Catheterization Procedure 1: Cardiovascular Cath Procedures: 60189 Coronaries and LHC (+/-LV) Therapeutic Services & Ancillary Proc Procedure 1: Cardiovascular Tx and Anc Procedures: 23172 IV Ultrasound (Coronary or Graft) Moderate Sedation Procedure 1: Sedation/Anesthesia: 34562 Mod Sedation by the same physician;Init15 Min Child Age 5 & Up Procedure 2: Sedation/Anesthesia: 11504 Mod Sedation by the same physician; Ea [id number] Minutes Stenting Procedure 1: Cardiovascular Stent Procedures: 59726 Perc transluminal revascularization of acute sub/total occl, aMI PG Care Time/CCT Total # of Minutes Spent Total Time Spent with Patient: Total time spent is greater than 50% in coordination of care (as documented) at patient's floor/unit and/or counseling patient:
--- NOTE | 2020-12-24 15:36 | Hospitalist Progress Note ---
Date of Service December 24, 2020 Assessment & Plan (1) NSTEMI (non-ST elevated myocardial infarction): Plan: 60 y/o M Hx HTN, HLD. Presents with intermittent CP. This initially occurred while exercising the prior day, and then recurred overnight waking him from sleep. The pt denies SOB, N/V, diaphoresis. He had some relief with an Excedrin at home. An initial EKG shows a NSR. Labs are notable for a trop of 0.98. 1) NSTEMI - full dose Lovenox, ASA, increase statin dose - assigned to telemetry left heart cath on 12/24: 100% occlusion in distal RCA, two drug eluting stents placed echo: EF is 55%, expected inferoseptal hypokinesis continue aspirin and Brilinta 90mg BID Lipitor 80mg cannot use beta tres, resting HR in 40's likely okay for discharge tomorrow if okay with cardiology 2) HTN - resume Olmesartan/HCTZ on discharge 3) HLD - increased lipitor to 80mg 4) EDSON- the pt states he tested negative for EDSON 10 years ago. His insists he has EDSON as he snores and stops breathing. Considering this admission, repeat testing would be indicated. Full code (2) HTN (hypertension): (3) HLD (hyperlipidemia): (4) EDSON (obstructive sleep apnea): Admission and Anticipated Discharge Date Admission Date: December 23, 2020 Subjective patient presented with ongoing chest pain NSTEMI - trop bumped to 3.7 taken for heart cath, two MARYJO placed in RCA, 100% occlusion echo: EF 55%, inferoseptal hypokinesis patient has no chest pain after cath, c/o right wrist pain and headache, no dyspnea, no nausea updated his at the bedside Review of Systems Review of Systems: All systems reviewed & are unremarkable except as noted in Subjective Physical Exam Constitutional: well developed, well nourished and comfortable; no acute distress Neck: trachea midline, no thyromegaly Respiratory: normal respiratory effort, lungs clear to auscultation Cardiovascular: RRR, no murmur, no edema Gastrointestinal (Abdomen): normal bowel sounds, soft, nontender, no hepatosplenomegaly Musculoskeletal: no cyanosis or clubbing, extremities motor strength 5/5 Skin: no rashes, warm and dry Neurologic: patellar DTR's 2+ bilat, sensation intact and PERRL, EOMI, accommodation nl, no face palsy, no dysarthria Psychiatric: A+Ox3, euthymic affect Results & Data Results & Data ([facility]) Vital Signs (Past 12 Hours) Vital Signs Temp Pulse Pulse Resp BP Pulse Ox 12/24/20 15:25 44 L 18 176/88 H 99 12/24/20 15:15 41 L 18 160/83 H 98 12/24/20 15:00 40 L 18 145/93 H 99 12/24/20 14:43 38 L 18 155/72 H 99 12/24/20 14:25 40 L 16 148/72 H 94 12/24/20 14:13 41 L 16 139/79 94 12/24/20 11:50 43 L 17 136/83 98 12/24/20 11:25 36.7 C 41 L 18 138/79 98 12/24/20 07:37 36.6 C 41 L 17 136/80 97 12/24/20 07:16 48 L Laboratory Results Laboratory Results - last 24 hr 12/23/20 12/23/20 12/23/20 15:02 15:02 16:30 PT 10.5 INR 1.0 APTT 25.9 PTT Ratio 1.0 Activ Coag Time Kaolin Sodium 139 Potassium 3.8 Chloride 106 Carbon Dioxide 30 Anion Gap 3.0 BUN 14 Creatinine 1.07 Est Cr Clr Drug Dosing 73.4 Est GFR ( Amer) 87.0 Est GFR (Non-Af Amer) 75.1 BUN/Creatinine Ratio 13.1 Glucose 111 H Calcium 9.1 Total Bilirubin 0.6 AST 36 ALT 36 Alkaline Phosphatase 76 Troponin I 0.968 H* Total Protein 6.7 Albumin 3.5 Globulin 3.2 Albumin/Globulin Ratio 1.1 Lipase 186 COVID-19 Eval Order Covid19 at [facility] SARS-CoV-2 (PCR) 12/23/20 12/23/20 12/24/20 16:30 22:30 03:43 PT INR APTT PTT Ratio Activ Coag Time Kaolin Sodium Potassium Chloride Carbon Dioxide Anion Gap BUN Creatinine Est Cr Clr Drug Dosing Est GFR ( Amer) Est GFR (Non-Af Amer) BUN/Creatinine Ratio Glucose Calcium Total Bilirubin AST ALT Alkaline Phosphatase Troponin I 2.910 H* 3.750 H* Total Protein Albumin Globulin Albumin/Globulin Ratio Lipase COVID-19 Eval Order SARS-CoV-2 (PCR) NEGATIVE 12/24/20 13:24 PT INR APTT PTT Ratio Activ Coag Time Kaolin 263 H Sodium Potassium Chloride Carbon Dioxide Anion Gap BUN Creatinine Est Cr Clr Drug Dosing Est GFR ( Amer) Est GFR (Non-Af Amer) BUN/Creatinine Ratio Glucose Calcium Total Bilirubin AST ALT Alkaline Phosphatase Troponin I Total Protein Albumin Globulin Albumin/Globulin Ratio Lipase COVID-19 Eval Order SARS-CoV-2 (PCR) Medications Administered Current Inpatient Medications Acetaminophen (Acetaminophen 325 Mg Tab) 650 mg PO Q4H PRN PRN Reason: Pain or Fever Stop: 01/22/21 20:14 Last Admin: 12/24/20 14:41 Dose: 650 mg Documented by: Al Hydrox/Mg Hydrox/Simethicone (Aluminum/Magnesium Susp 30 Ml Udc) 15 ml PO Q4H PRN PRN Reason: Dyspepsia Stop: 01/22/21 20:14 Aspirin (Aspirin 81 Mg Ectab) [facility] [place] Stop: 01/23/21 08:59 Last Admin: 12/24/20 08:05 Dose: 81 mg Documented by: Atorvastatin Calcium (Atorvastatin 40 Mg Tab) [facility] [place] Stop: 01/24/21 08:59 Sodium Chloride (Nss 1000ml) 1,000 mls @ 100 mls/hr IV .Q10H [facility] Stop: 12/24/20 20:14 Magnesium Hydroxide (Magnesium Hydroxide Susp 30 Ml Udc) 30 ml PO Q12H PRN PRN Reason: Constipation Stop: 01/22/21 20:14 Morphine Sulfate (Morphine Sulfate 2 Mg/Ml Carp) 2 mg IV Q30M PRN PRN Reason: Chest Pain Stop: 01/06/21 20:14 Nitroglycerin (Nitroglycerin Sl 0.4 Mg/Tab Tab) 0.4 mg SL UD PRN PRN Reason: Chest Pain Stop: 01/22/21 20:14 Olmesartan (Olmesartan Medoxomil 20 Mg Tab) 20 mg PO QAM [facility] Stop: 01/23/21 15:29 Ticagrelor (Ticagrelor 90 Mg Tab) 90 mg PO BID [facility] Stop: 01/24/21 08:59 Zolpidem Tartrate (Zolpidem Tartrate 5 Mg Tab) 5 mg PO HS PRN PRN Reason: Sleep Stop: 01/22/21 20:14 PG Care Time/CCT Total # of Minutes Spent Total Time Spent with Patient: Total time spent is greater than 50% in coordination of care (as documented) at patient's floor/unit and/or counseling patient: Coding Level of Care Code 10768 Subseq Hosp Care Lvl 2 Diagnoses NSTEMI (non-ST elevated myocardial infarction) I21.4 HTN (hypertension) I10 Hypertension type: unspecified HLD (hyperlipidemia) E78.5 Hyperlipidemia type: unspecified EDSON (obstructive sleep apnea) G47.33 (1) HLD (hyperlipidemia) Hyperlipidemia type: unspecified Qualified Code(s): E78.5 - Hyperlipidemia, unspecified (2) HTN (hypertension) Hypertension type: unspecified Qualified Code(s): I10 - Essential (primary) hypertension
--- NOTE | 2020-12-24 16:31 | Electrocardiogram Report ---
Test Reason : Blood Pressure : / mmHG Vent. Rate : 039 BPM Atrial Rate : 039 BPM P-R Int : 200 ms QRS Dur : 094 ms QT Int : 524 ms P-R-T Axes : 061 012 048 degrees QTc Int : 421 ms Marked sinus bradycardia Abnormal ECG When compared with ECG of 23-DEC-2020 13:48, Nonspecific T wave abnormality no longer evident in Anterior leads Confirmed by Noah Sanchez ([id number]) on 12/24/2020 4:31:14 PM Referred By: Junito Longoria Confirmed By:Noah Sanchez
[2020-12-24] MEDS: OLMESARTAN MEDOXOMIL 20 MG TAB PO SCH (17:09)
[2020-12-25 07:26] LABS: BUN Creatinine Ratio 11.7 (10-20); Calcium 8.5 mg/dl (8.5-10.1); Creatinine Clr Calc Pharmacy 74.8 ml/min; Est GFR (Non-African American) 76.8 ml/min
[2020-12-25] MEDS: ASPIRIN 81 MG ECTAB PO SCH (08:07)
[2020-12-25] MEDS: OLMESARTAN MEDOXOMIL 20 MG TAB PO SCH (08:09)
[2020-12-25] MEDS ORDERED: TICAGRELOR 90 MG TAB PO SCH (09:00)
[2020-12-25] MEDS ORDERED: ATORVASTATIN 40 MG TAB PO SCH (09:00)
--- NOTE | 2020-12-25 14:31 | Cardiology Progress Note ---
Date of Service December 25, 2020 Assessment & Plan (1) NSTEMI (non-ST elevated myocardial infarction): Plan: - 100% acute on chronic RCA occlusion post PCI with 2 MARYJO 2. Preserved LV function with inferior wma 3. Dyslipidemia 4. Hypertension 5. Mild mitral regurgitation 6. Sinus bradycardia Ok for discharge today. Home on: DAPT with ASA 81, ticagrelor 90mg BID Increased atorvastatin to 80mg Resume home Olmesartan/HCTZ Beta-tres held due to bradycardia. Follow-up with me in 1-2 weeks. Admission and Anticipated Discharge Date Admission Date: December 23, 2020 Subjective Feeling well. No chest pain or shortness of breath. Telemetry reviewed -- no events. Review of Systems 2 Review of Systems: All systems reviewed & are unremarkable except as noted in HPI & below Physical Exam Constitutional: WD/WN, vitals as above Eyes: + anicteric sclerae Respiratory: normal respiratory effort, lungs clear to auscultation Cardiovascular: RRR, no murmur, no edema 2+ radial pulse. No hematoma. Intact RUE distal cap refill/sensation. Gastrointestinal (Abdomen): Percussion/Palpation: abdomen soft; abdomen nontender Skin: no rashes, warm and dry Neurologic: no focal motor deficits Psychiatric: A+Ox3, euthymic affect Results & Data ([facility]) Vital Signs (Past 12 Hours) Vital Signs Temp Pulse Pulse Resp BP Pulse Ox 12/25/20 11:33 98.6 F 46 L 18 143/80 H 99 12/25/20 07:41 47 L 12/25/20 07:21 97.9 F 44 L 18 145/72 H 97 12/25/20 04:17 98.1 F 45 L 16 132/93 96 PG Care Time/CCT Total # of Minutes Spent Total Time Spent with Patient: Total time spent is greater than 50% in coordination of care (as documented) at patient's floor/unit and/or counseling patient: Coding Level of Care Code 53923 Subseq Hosp Care Lvl 3 Diagnoses NSTEMI (non-ST elevated myocardial infarction) I21.4
[2020-12-25 14:50] LABS: Hematocrit (blood only) 42.8 % (42-52); Hemoglobin 14.8 g/dL (14.0-18.0); Mean Corpuscular Hemoglobin 29.4 pg (25-34); Mean Corpuscular Hgb Conc 34.6 g/dL (32-36); Mean Corpuscular Volume 84.9 fL (80-100); Platelet Count 200 K/uL (130-400); RDW Coefficient of Variation 13.1 % (11.5-14.5); RDW Standard Deviation 40.8 fL (36.4-46.3); Red Blood Count 5.04 M/uL (4.7-6.1); White Blood Count 4.71 K/uL (4.8-10.8)
--- NOTE | 2020-12-25 14:56 | Discharge Summary ---
Date of Service December 25, 2020 Admission HPI Per Admitting Provider 60 y/o M Hx HTN, HLD. Presents with intermittent CP. This initially occurred while exercising the prior day, and then recurred overnight waking him from sleep. The pt denies SOB, N/V, diaphoresis. He had some relief with an Excedrin at home. An initial EKG shows a NSR. Labs are notable for a trop of 0.98. PMH: 1) HTN 2) HLD 3) Prior dx of EDSON Surgical: Upper airway surgery for EDSON Social: Drinks alcohol in moderation. Does not smoke. Exercises regularly. Family: Mother - Dementia Father alive - CVA, CAD/DC x 2 Admission Exam Per Admitting Provider General: AAO x 3, no distress ENT: No erythema or exudates, no thrush Eyes: JOSUE, EOMI Head and neck: Normocephalic, atraumatic, No JVD, neck is supple. Chest/heart: Nontender, S1,2, RRR, no murmurs, no gallops Lungs: CTAB, no wheezing or crackles Abdomen: Nontender, nondistended, BS+ Neuro: AAO x 3, speech is clear, no unilateral weakness or loss of sensation, c oordination intact Musculoskeletal: No joint inflammation, muscle tenderness, FROM Skin: No acute rashes or ulcers Extremities: No clubbing, cyanosis, edema Principal Diagnosis NSTEMI (non ST elevation myocardial infarction) Discharge Exam Constitutional WD/WN, vitals as above ENMT external ear and nose normal, oropharynx normal Respiratory normal respiratory effort, lungs clear to auscultation Cardiovascular Rate/Rhythm: regular rhythm and + bradycardic Heart Sounds: no murmur Vessels: no JVD Extremities: no calf tenderness and no pedal edema Skin no rashes, warm and dry Discharge Data Allergies Allergy/AdvReac Type Severity Reaction Status Date / Time codeine Allergy Unknown HAS Verified 12/23/20 16:42 RECEIVED MORPHINE ON ADMIT W/O RXN niacin Allergy Verified 12/23/20 16:42 [From Niaspan Extended-Release] Consultations 12/23/20 16:39 ED Decision to Admit Stat 12/23/20 20:15 Consult Cardiology Routine Procedures Performed Operation Date: 12/24/20 12:00 Actual Procedures s Cath, Left with Cors and Vent - Felice Allan MD s Cineradiography w/Routine Exam - Felice Allan MD p Drug Eluting Stent SGl Vessel - Felice Allan MD s IVUS Coronary Single Vessel - Felice Allan MD Ordered Studies 12/24/20 12:29 CL Cath Imgs for PACS use only Routine 12/24/20 14:22 CL IVUS Coronary Single Vessel Routine Hospital Course (1) NSTEMI (non-ST elevated myocardial infarction): Ernie Rolon is a 60 year old male admitted to [facility] from December 23 to 2020 due to chest pain. He was diagnosed with an NSTEMI with EKG showing sinus bradycardia with TWI in anterolateral leads. He was treated with IV heparin, aspirin and atorvastatin. Non-emergent cardiac catheterization performed on December 24, 2020 showing an acute on chronic 100% latemid RCA occlusion treated with successful percutaneous coronary intervention with x2 drug eluting stents. He has been chest pain free since cardiac catheterization. (2) HTN (hypertension): (3) HLD (hyperlipidemia): (4) EDSON (obstructive sleep apnea): Total Time Total Time Spent Total Time Spent (In Minutes): 50 Discharge Plan Discharge Items Patient Disposition: Home - Self-Care Reason For Visit: CHEST PAIN Discharge Diagnosis: NSTEMI (non ST elevation myocardial infarction) - heart attack Activity: Resume your previous activity Non-emergency contact: Hospital Intern Call non-emergency contact if: you have any medication questions and your symptoms worsen Follow-up/Referrals: Joesph Hussein MD [Primary Care Provider] - Felice Allan MD [Physician] - (within the next week) Diet: Heart Healthy Addtl Attending Provider Instructions: You were admitted to [facility] from December 23 to 2020 due to chest pain. You were diagnosed with a heart attack known as an NSTEMI. This was treated with acute coronary syndrome medications and you were taken for cardiac catheterization on December 24, 2020 showing a ncute on chronic 100% latemid RCA occlusion treated with successful percutaneous coronary intervention with x2 drug eluting stents. 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 Nitroglycerin sublingual tablets have been prescribed for use for further chest pain. If you pain occurs at rest or recurs despite x2 nitros please return to the emergency room. Addtl Manager Financial Provider Instructions: ACTIVITY RECOMMENDATIONS: Excess manipulation of the wrist should be avoided for the next 24-48 hours. * No lifting over 2 pounds (approximately a 1/2 gallon of milk) with the utilized arm for 24 hours. * No strenuous activity such as bowling or tennis for 3 days. * Keep the site of the procedure covered with a bandage for 24 hours. *You may shower the day after the procedure. Do not take a tub bath or submerge the puncture site in water for the next 3 days. *Do not operate any motorized equipment for 3 days. SPECIAL CARE INSTRUCTIONS: The site may be slightly bruised and sore following your procedure. Should any of the following occur, contact the Dr. who performed your procedure. 1. Redness/inflammation, swelling, chills, or fever, or colored drainage at procedure site within 3-7 days after your procedure. 2. Coldness, discoloration, ongoing numbness, severe pain, or swelling. Expect mild tingling of hand and tenderness at the puncture site for up to three days. If this persists beyond three days, or other symptoms develop, notify the Dr. who performed your procedure. BLEEDING: If the procedure site on your wrist begins to bleed, do not panic 1. Place 1 or 2 fingers firmly just slightly above the insertion site to stop the bleeding. You may be able to feel your pulse as you hold pressure. 2. Lift your finger after 5 minutes to see if the bleeding has stopped. 3. Once the bleeding has stopped, gently wipe the wrist area clean with a bandage. * If the bleeding from your wrist does not stop after 10 minutes, or if there is a large amount of bleeding or spurting, call 911 (do not drive yourself to the hospital). SKIN IRRITATION: * You may experience some redness and/or swelling in the area where radiation was administered. If any skin irritation occurs, please contact your family physician. FOLLOW UP VISIT: Keep any scheduled doctor appointments. Pending Studies at Discharge: No Stand-Alone Forms: [employer], Smoking Cessation Medications and DC Order Prescriptions: New aspirin 81 mg tablet,delayed release (DR/EC) 81 mg PO DAILY Qty: 30 RF: 0 Brilinta 90 mg tablet 90 mg PO BID Qty: 60 RF: 0 atorvastatin 80 mg tablet 80 mg PO HS Qty: 30 RF: 0 nitroglycerin 0.4 mg tablet, sublingual 0.4 mg sublingual Q5M PRN (Reason: chest pain) Qty: 10 RF: 0 Continued Coromega 284-850 mg/2.5 gram emulsion in packet 2.5 g PO QAM RF: 0 Adult 50 Plus Probiotic 4 billion cell capsule 4,000 mmu cells PO QAM RF: 0 cetirizine 10 mg tablet 10 mg PO QAM RF: 0 olmesartan-hydrochlorothiazide 40-12.5 mg tablet 1 tab PO QAM RF: 0 Discontinued Excedrin Extra Strength 250-250-65 mg Tablet 1 tab PO Q6H PRN (Reason: Pain) RF: 0 atorvastatin 10 mg tablet 10 mg PO QAM RF: 0 tadalafil [Cialis] 20 mg tablet 20 mg PO DIRECTED PRN (Reason: health maintenence) RF: 0 Discharge Orders: Discharge Order (Routine); Ordered 12/25/20 Ordered By: Eron Aguilera/Other Patient Handouts: Heart Attack Dc, Heart Attack: Leaving the Hospital, Heart Attack resuming Sex Admission Data Admit Date/Time: 12/23/20 17:01 Attending Provider: Eron Harp Admit Provider: Suresh Ashraf Primary Care Provider: Joesph Hussein Other Providers: Suresh Ashraf ; Chava Choi Other Interventions: Discharge Summary Assessment (RN) Last Done: 12/25/20 14:59 Coding Level of Care Code D/C DAY MANAGEMENT >30 MINS Diagnoses NSTEMI (non-ST elevated myocardial infarction) I21.4 HTN (hypertension) I10 Hypertension type: unspecified HLD (hyperlipidemia) E78.5 Hyperlipidemia type: unspecified EDSON (obstructive sleep apnea) G47.33
== END 2020-12-25 15:20 | disposition home or self-care (01) | DRG 247 ==
LOC: ED 13:42 → 2S 17:01 → SUATTDRO 17:01 → 2S 18:32